=== PATIENT | male | born 1970 | race Hispanic/Latino ===

== ENCOUNTER 2022-09-01 19:15 | Emergency (ER) | payer BC ==
[2022-09-01] MEDS ORDERED: Silver Nitrate Application 1 EACH ONE (19:48)
== END 2022-09-01 20:10 | disposition home or self-care (01) ==
LOC: NAV ERS 19:15
DX: L98.9 Disorder of the skin and subcutaneous tissue, unspecified (principal); I25.2 Old myocardial infarction; I10 Essential (primary) hypertension; E78.5 Hyperlipidemia, unspecified; K21.9 Gastro-esophageal reflux disease without esophagitis; Z87.891 Personal history of nicotine dependence; Z79.899 Other long term (current) drug therapy
CPT/HCPCS: 99283